=== PATIENT | female | born 1955 | race Caucasian/White ===

== ENCOUNTER 2017-11-17 21:51 | Emergency (ER) | payer MEDICARE ==
[2017-11-17 22:38] LABS: ABSOLUTE LYMPHOCYTES (AUTO) 2.8 10^3/uL (0.5-4.7); ABSOLUTE MONOCYTES (AUTO) 0.3 10^3/uL (0.1-1.4); ABSOLUTE NEUT (AUTO) 9.5 10^3/uL (1.7-8.2); BASOPHILS % (AUTO) 0.2 % (0-2); HEMATOCRIT 47.7 % (36.0-47.0); HEMOGLOBIN 15.7 g/dL (12.0-15.5); LYMPHOCYTES % (AUTO) 22.3 % (13-45); MEAN CORPUSCULAR HEMOGLOBIN 29.9 pg (27.0-33.4); MEAN CORPUSCULAR VOLUME 91 fl (80-97); MONOCYTES % (AUTO) 2.4 % (3-13); PLATELET COUNT 288 10^3/uL (150-450); RED BLOOD COUNT 5.27 10^6/uL (3.72-5.28); RED CELL DISTRIBUTION WIDTH 13.7 % (11.5-14.0); SEGMENTED NEUTROPHILS % (AUTO) 75.1 % (42-78); TOTAL CELLS COUNTED % (AUTO) 100 %; WHITE BLOOD COUNT 12.6 10^3/uL (4.0-10.5)
[2017-11-17 22:42] LABS: ALANINE AMINOTRANSFERASE 57 U/L (9-52); ALBUMIN 5.6 g/dL (3.5-5.0); ALKALINE PHOSPHATASE 116 U/L (38-126); ASPARTATE AMINO TRANSFERASE 52 U/L (14-36); BILIRUBIN,DIRECT 0.4 mg/dL (0.0-0.4); BILIRUBIN,TOTAL 0.6 mg/dL (0.2-1.3); BLOOD UREA NITROGEN 15 mg/dL (7-20); CALCIUM 10.4 mg/dL (8.4-10.2); CHLORIDE 99 mmol/L (98-107); GLUCOSE 201 mg/dL (75-110); TOTAL PROTEIN 9.2 g/dL (6.3-8.2)
[2017-11-17 22:43] LABS: ALCOHOL < 10 mg/dL (NONE DETECTED)
[2017-11-17 22:47] LABS: CARBON DIOXIDE 15 mmol/L (22-30); SODIUM 143.6 mmol/L (137-145)
[2017-11-17 22:50] LABS: ANION GAP 30 (5-19)
[2017-11-17 23:02] LABS: APPEARANCE,URINE CLEAR; BILIRUBIN,URINE NEGATIVE (NEGATIVE); COLOR,URINE STRAW; GLUCOSE, URINE >=500 mg/dL (NEGATIVE); KETONES,URINE 20 mg/dL (NEGATIVE); LEUKOCYTE ESTERASE,URINE NEGATIVE (NEGATIVE); NITRITE,URINE NEGATIVE (NEGATIVE); PROTEIN,URINE 100 mg/dL (NEGATIVE); UROBILINOGEN,URINE NEGATIVE mg/dL (<2.0)
[2017-11-17 23:11] LABS: URINE AMPHETAMINES SCREEN NEGATIVE; URINE BARBITURATES SCREEN NEGATIVE; URINE BENZODIAZEPINES SCREEN NEGATIVE; URINE MARIJUANA (THC) SCREEN NEGATIVE; URINE PHENCYCLIDINE SCREEN NEGATIVE
[2017-11-17 23:12] LABS: URINE METHADONE SCREEN NEGATIVE
--- NOTE | 2017-11-17 23:18 | RADIOLOGY REPORT (SQ) ---
EXAM DESCRIPTION: CT HEAD WITHOUT IV CONTRAST COMPLETED DATE/TME: 11/17/2017 22:22 CLINICAL HISTORY: fall, head pain COMPARISON: None available TECHNIQUE: Axial CT of the head obtained from the skull apex to the skull base without contrast. FINDINGS: No acute intracranial hemorrhage identified. No mass, mass effect, shift of the midline, abnormal extra-axial fluid collection or CT evidence of acute ischemic change identified. The ventricular system and sulcal spaces are mildly enlarged compatible with mild cerebral atrophy. Postoperative change of the left mastoid. Scattered areas of hypodensity throughout the supratentorial white matter are nonspecific and may be related to chronic small vessel ischemic change. The visualized paranasal sinuses and the mastoids are clear. No skull fracture identified. Visualized orbits and globes are unremarkable. Atherosclerotic calcification of the intracranial internal carotid arteries. DLP:1096.98 mGy-cm IMPRESSION: 1. No acute intracranial abnormality by CT criteria. This exam was performed according to our departmental dose-optimization program, which includes automated exposure control, adjustment of the mA and/or kV according to patient size and/or use of iterative reconstruction technique.
[2017-11-17] MEDS ORDERED: NORMAL SALINE 1000 ML 1,000 ML IV ONE ×2 (23:28)
[2017-11-17] MEDS ORDERED: ACETAMINOPHEN 325 MG TABLET PO ONE (23:29)
--- NOTE | 2017-11-17 23:54 | ER Document Report ---
ED General - General Chief Complaint: Probable Seizure Stated Complaint: FALL, HEAD PAIN Time Seen by Provider: 11/17/17 22:06 Mode of Arrival: Medic Information source: Patient, Relative Notes: 62-year-old female patient who presents with complaint of fall and possible seizure. reports that patient went into the restroom this evening when he heard a loud noise and found her sitting on the bathroom floor with her head against the bathroom door. He then reports that patient had generalized shaking and stiffening followed by a period of somnolence and snoring. Patient has no history of seizures. Patient did vomit one time this evening prior to the fall with possible seizure however patient's reports that this is been an ongoing issue for several months where she has intermittent vomiting and has been states that she has been seen by her primary care provider for this. Patient has not had any illness prior to this evening, states she has been doing well. Patient does have a history of depression, hypertension and [id number] diabetes. TRAVEL OUTSIDE OF THE [place] IN LAST 30 DAYS: No - Related Data Allergies/Adverse Reactions: cefaclor [From Ceclor] Allergy (Verified 11/14/17 13:15) Nausea latex Allergy (Verified 11/14/17 13:17) Past Medical History - General Information source: Relative - Social History Smoking Status: Never Smoker Chew tobacco use (# tins/day): No Frequency of alcohol use: Occasional Drug Abuse: None Lives with: Spouse/Significant other Family History: Reviewed & Not Pertinent Patient has suicidal ideation: No Patient has homicidal ideation: No - Past Medical History Cardiac Medical History: Reports: Hx Hypertension Denies: Hx Heart Attack Pulmonary Medical History: Denies: Hx Asthma Neurological Medical History: Denies: Hx Cerebrovascular Accident, Hx Seizures Endocrine Medical History: Reports: Hx Diabetes Mellitus Type 2 Renal/ Medical History: Denies: Hx Peritoneal Dialysis GI Medical History: Denies: Hx Hepatitis, Hx Hiatal Hernia, Hx Ulcer Psychiatric Medical History: Reports: Hx Depression Infectious Medical History: Denies: Hx Hepatitis Past Surgical History: Denies: Hx Mastectomy, Hx Open Heart Surgery, Hx Pacemaker Review of Systems - Review of Systems Constitutional: See HPI EENT: No symptoms reported Cardiovascular: No symptoms reported Respiratory: No symptoms reported Gastrointestinal: No symptoms reported Genitourinary: No symptoms reported Female Genitourinary: No symptoms reported Musculoskeletal: No symptoms reported Skin: No symptoms reported Hematologic/Lymphatic: No symptoms reported Neurological/Psychological: No symptoms reported Physical Exam - Vital signs Vitals: Temp Pulse Resp BP Pulse Ox 99.4 F 113 H 18 159/80 H 92 11/17/17 21:58 11/17/17 21:58 11/17/17 21:58 11/17/17 21:58 11/17/17 21:58 - Notes Notes: PHYSICAL EXAMINATION: GENERAL: Well-appearing, well-nourished and in no acute distress. HEAD: Contusion superior to right eye on forehead, normocephalic. EYES: Pupils equal round and reactive to light, extraocular movements intact, conjunctiva are normal. ENT: Nares patent, oropharynx clear without exudates. Moist mucous membranes. TM's normal bilaterally. NECK: Normal range of motion, supple without lymphadenopathy LUNGS: Breath sounds clear to auscultation bilaterally and equal. No wheezes rales or rhonchi. HEART: S1 S2 present, no murmur appreciated. ABDOMEN: Soft, nontender, nondistended abdomen. No guarding, no rebound. No masses appreciated. Female : deferred. Musculoskeletal: Normal range of motion, no pitting or edema. No cyanosis. Contusion to right upper arm. NEUROLOGICAL: Cranial nerves grossly intact. Normal speech. Normal sensory, motor exams. Unable to recall events surrounding fall. PSYCH: Normal mood, normal affect. SKIN: Warm, Dry, normal turgor, no rashes or lesions noted. Course - Re-evaluation Re-evalutation: 62-year-old female patient who presents after suffering from a possible seizure. Patient has no history of seizures. Patient does report a headache around the area of her right forehead where she had her head on the wall. CBC was unremarkable. CMP with elevated anion gap. Mag is normal. Urinalysis is negative for any signs of infection. EtOH is negative, tox screen is normal. Head CT with no acute findings. EKG with mild tachycardia, normal QTC, no ST segment elevation or depression, normal axis. Seizure precautions are in place, patient is on color television console monitor. Discussed patient's case with Dr. Meng who recommends IV fluid hydration and recheck her anion gap. Vital signs are stable at this time and mild tachycardia. After 2 L normal saline bolus, patient's anion gap is 13. Patient has not had any seizure activity after several hours of monitoring in the emergency department the color television console monitor. Patient reports that her headache is completely resolved. Will discharge patient home with plans to follow-up with Dr. Florian (Neurology). Patient and agree with plan of care and have no questions. - Vital Signs Vital signs: Temp Pulse Resp BP Pulse Ox 99.4 F 113 H 17 147/71 H 94 11/17/17 21:58 11/17/17 21:58 11/18/17 03:01 11/18/17 03:00 11/18/17 03:01 - Laboratory Result Diagrams: 11/17/17 21:20 11/18/17 02:30 Laboratory results interpreted by me: 11/17/17 11/17/17 11/17/17 21:20 21:20 22:10 WBC 12.6 H Hgb 15.7 H Hct 47.7 H Monocytes % 2.4 L Absolute Neutrophils 9.5 H Carbon Dioxide 15 L Anion Gap 30 H Creatinine Glucose 201 H Calcium 10.4 H AST 52 H ALT 57 H Total Protein 9.2 H Albumin 5.6 H Urine Protein 100 H Urine Glucose (UA) >=500 H Urine Ketones 20 H 11/18/17 02:30 WBC Hgb Hct Monocytes % Absolute Neutrophils Carbon Dioxide Anion Gap Creatinine 0.50 L Glucose Calcium AST ALT Total Protein Albumin Urine Protein Urine Glucose (UA) Urine Ketones Discharge - Discharge Clinical Impression: Seizure Condition: Stable Disposition: HOME, SELF-CARE Additional Instructions: Seizure You have likely had a seizure. Seizure disorders (epilepsy) of one sort or another affect about one out of 50 people. The seizure occurs because of abnormal electrical activity in the brain. Seizures may be due to drugs and alcohol, strokes, brain injury, or infection. In the most common form of epilepsy, no cause can be found. You will require further evaluation to determine the cause of your seizure, and to determine whether anti-seizure medication is required. This follow-up testing is important, so please call us if you encounter problems with scheduling of tests or appointments. YOU SHOULD NOT DRIVE until released to do so by your physician. The law requires that seizures be reported to the [place] driver's license bureau--a seizure while driving could be catastrophic. Call the doctor if seizures recur, or if you develop new symptoms such as fever, severe headache, stiff neck, confusion or increasing sleepiness, weakness or numbness, or visual problems. You were monitored for several hours in the emergency department and did have a normal work-up. Please call neurology in the morning to schedule an appointment. Do not drive until you are cleared. Return to the emergency department if you have any further concerns. Referrals: SABRINA JOHNSTON DO [Primary Care Provider] - Follow up as needed KEYA MALDONADO MD [NO LOCAL MD] - Follow up as needed
[2017-11-18 00:39] LABS: URINE COCAINE SCREEN NEGATIVE
[2017-11-18] MEDS ORDERED: KETOROLAC TROMETHAMINE INJ/PF 30 MG/1 ML SDV IV ONE (01:08)
[2017-11-18] MEDS ORDERED: ONDANSETRON 4 MG TAB.RAPDIS PO ONE (01:08)
[2017-11-18] MEDS ORDERED: ONDANSETRON 4 MG TAB.RAPDIS ONE (01:09)
[2017-11-18] MEDS ORDERED: METOCLOPRAMIDE HCL INJ/PF 10 MG/2 ML SDV ONE (01:11)
[2017-11-18] MEDS ORDERED: PHENTOLAMINE MESYLATE INJ 5 MG VIAL IV ONE (01:11)
[2017-11-18] MEDS ORDERED: METOCLOPRAMIDE HCL INJ/PF 10 MG/2 ML SDV IV ONE (02:26)
[2017-11-18 03:06] LABS: ANION GAP 13 (5-19); BLOOD UREA NITROGEN 13 mg/dL (7-20); CALCIUM 8.6 mg/dL (8.4-10.2); CARBON DIOXIDE 24 mmol/L (22-30); CHLORIDE 105 mmol/L (98-107); GLUCOSE 103 mg/dL (75-110); SODIUM 142.1 mmol/L (137-145)
[2017-11-18 04:56] VITALS: BP 147/71
--- NOTE | 2017-11-18 06:34 | EKG REPORT ---
SEVERITY:- OTHERWISE NORMAL ECG - SINUS TACHYCARDIA : Confirmed by: Allan Tovar MD 18-Nov-2017 06:33:58
== END 2017-11-18 04:21 | disposition home or self-care (01) ==
LOC: ER 21:51
DX: R56.9 Unspecified convulsions (principal); E11.9 Type 2 diabetes mellitus without complications; I10 Essential (primary) hypertension; Z91.040 Latex allergy status
CPT/HCPCS: 93005; 99285; 96361; 96374; 96375; 36415; 80307 ×2; 83735; 85025; 80048; 80053; 81001; 70450; 93010; A9270; J1885; J2765; J7030 ×2

== ENCOUNTER 2018-08-13 08:35 | Day surgery (SDC) | payer MEDICARE ==
[~2018-08-13 08:35] MED LIST: CHONDR SU A NA/HYALUR INTRAOC KIT (SURGICARE) ONE; EPINEPHRINE INJ/PF 1 MG/1 ML AMPULE ONE; KETOROLAC TROMETHAMINE 0.45% 4 DROP/0.4 ML DROPERETTE OS PRN; LIDOCAINE 1% INJ-PF (10 MG/ML) 30 ML SDV ONE
[2018-08-13] MEDS: CYCLOPENTOLATE 0.2%/PHENYLEPHRINE 1% OPH SOLN 2 ML OS PRN ×3 (09:17→09:38)
[2018-08-13] MEDS: TROPICAMIDE 1% OPH SOLN 3 ML OS PRN ×3 (09:17→09:38)
[2018-08-13] MEDS: BESIFLOXACIN HCL 0.6% OPH SUSP 5 ML BOTTLE OS PRN ×4 (09:18→10:10)
[2018-08-13] MEDS: TETRACAINE HCL 0.5% OPH SOLN 0.6 ML DROPERETTE OS PRN ×3 (09:19→09:44)
[2018-08-13] MEDS ORDERED: FENTANYL CITRATE INJ/PF 100 MCG/2 ML AMPUL ONE (09:29)
[2018-08-13] MEDS ORDERED: MIDAZOLAM 2 MG/2 ML INJ ONE ×2 (09:29→09:52)
[2018-08-13] MEDS: TOBRAMYCIN SULFATE/DEXAMETH OPH OINTMENT 3.5 GM ONE ×2 (10:10)
[2018-08-13] MEDS: DORZOLAMIDE HCL 2%/TIMOLOL MALEAT 0.5% OPH SOLN 10 ML OS PRN ×2 (10:10)
== END 2018-08-13 10:54 | disposition home or self-care (01) ==
LOC: SC 08:35
PROVIDERS: ATTEND Ophthalmology
DX: H25.12 Age-related nuclear cataract, left eye (principal); I10 Essential (primary) hypertension; E11.9 Type 2 diabetes mellitus without complications; E78.00 Pure hypercholesterolemia, unspecified; G40.909 Epilepsy, unspecified, not intractable, without status epilepticus; Z79.899 Other long term (current) drug therapy; Z87.891 Personal history of nicotine dependence; Z79.84 Long term (current) use of oral hypoglycemic drugs
CPT/HCPCS: 66984; 82962; V2632; J2250; J3490 ×3; A9270; J0171; J3010; 142

== ENCOUNTER 2018-08-27 07:33 | Day surgery (SDC) | payer MEDICARE ==
[~2018-08-27 07:33] MED LIST changes: -CHONDR SU A NA/HYALUR INTRAOC KIT (SURGICARE) ONE; -EPINEPHRINE INJ/PF 1 MG/1 ML AMPULE ONE; +KETOROLAC TROMETHAMINE 0.45% 4 DROP/0.4 ML DROPERETTE OD PRN; -KETOROLAC TROMETHAMINE 0.45% 4 DROP/0.4 ML DROPERETTE OS PRN; -LIDOCAINE 1% INJ-PF (10 MG/ML) 30 ML SDV ONE
[2018-08-27] MEDS ORDERED: ONDANSETRON HCL INJ/PF 4 MG/2 ML SDV ONE (07:53)
[2018-08-27] MEDS ORDERED: FENTANYL CITRATE INJ/PF 100 MCG/2 ML AMPUL ONE (07:53)
[2018-08-27] MEDS ORDERED: MIDAZOLAM 2 MG/2 ML INJ ONE (07:53)
[2018-08-27] MEDS ORDERED: EPINEPHRINE INJ/PF 1 MG/1 ML AMPULE ONE (08:17)
[2018-08-27] MEDS ORDERED: CHONDR SU A NA/HYALUR INTRAOC KIT (SURGICARE) ONE (08:18)
[2018-08-27] MEDS ORDERED: LIDOCAINE 1% INJ-PF (10 MG/ML) 30 ML SDV ONE (08:18)
[2018-08-27] MEDS: BESIFLOXACIN HCL 0.6% OPH SUSP 5 ML BOTTLE OD PRN ×4 (08:28→09:20)
[2018-08-27] MEDS: CYCLOPENTOLATE 0.2%/PHENYLEPHRINE 1% OPH SOLN 2 ML OD PRN ×3 (08:28→08:50)
[2018-08-27] MEDS: TROPICAMIDE 1% OPH SOLN 3 ML OD PRN ×3 (08:28→08:50)
[2018-08-27] MEDS: TETRACAINE HCL 0.5% OPH SOLN 0.6 ML DROPERETTE OD PRN ×3 (08:28→08:59)
[2018-08-27] MEDS: TOBRAMYCIN SULFATE/DEXAMETH OPH OINTMENT 3.5 GM ONE ×2 (09:20)
== END 2018-08-27 09:59 | disposition home or self-care (01) ==
LOC: SC 07:33
PROVIDERS: ATTEND Ophthalmology
DX: H25.11 Age-related nuclear cataract, right eye (principal); Z98.42 Cataract extraction status, left eye; I10 Essential (primary) hypertension; E78.00 Pure hypercholesterolemia, unspecified; E11.9 Type 2 diabetes mellitus without complications; G40.909 Epilepsy, unspecified, not intractable, without status epilepticus; H81.09 Meniere's disease, unspecified ear; Z79.84 Long term (current) use of oral hypoglycemic drugs; Z87.891 Personal history of nicotine dependence; Z79.899 Other long term (current) drug therapy
CPT/HCPCS: 82962; 66984; V2632; J2250; J3490 ×3; A9270; J0171; J3010; J2405; 142